=== PATIENT | female | born 1980 | race Hispanic/Latino ===

== ENCOUNTER 2017-09-21 19:33 | Emergency (ER) | payer SELFPAY | END 2017-09-21 19:40 | disposition short-term general hospital (02) | LOC: ER 19:33 | DX: S69.90XA Unspecified injury of unspecified wrist, hand and finger(s), initial encounter (principal) ==

== ENCOUNTER 2024-02-07 17:30 | Emergency (ER) | payer SELFPAY ==
[~2024-02-07] VITALS: Ht 170.2 cm; Wt 117.9 kg
[2024-02-07 17:35] VITALS: PULSE 90; RESP 16; TEMP 98.5; O2SAT 100
[2024-02-07] MEDS ORDERED: AZITHROMYCIN250 MG PO (17:43)
== END 2024-02-07 17:50 | disposition home or self-care (01) ==
LOC: ER 17:34
DX: H66.91 Otitis media, unspecified, right ear (principal)
CPT/HCPCS: 99282